=== PATIENT | female | born 1970 | race Caucasian/White ===

== ENCOUNTER → 2020-02-10 | Outpatient (CLI) | payer MEDICARE, OTHER ==
[~2020-02-10] MED LIST: FLEXERIL 10 MG10 MG PO; PREDNISONE 50 M50 MG PO; Voltaren Gel 1 % TOP
[2020-02-10 11:26] LABS: HEMOGLOBIN 14.1 gm/dl (12.3-15.3); RED BLOOD COUNT 4.74 M/UL (4.00-5.10); WHITE BLOOD COUNT 10.2 K/UL (4.5-11.0)
[2020-02-10 11:56] LABS: BUN/CREATININE RATIO 19 (0-10)
== END ==
LOC: LAB 10:49
PROVIDERS: Nurse Practitioner Psychiatric/Mental Health
DX: D50.9 Iron deficiency anemia, unspecified (principal)
CPT/HCPCS: 36415; 80053; 80061; 82607; 83036; 83540; 83735; 85025

== ENCOUNTER → 2020-02-11 | Outpatient (CLI) | payer MEDICARE, OTHER | LOC: HEART 5 08:54 | DX: R07.9 Chest pain, unspecified (principal); I08.8 Other rheumatic multiple valve diseases | CPT/HCPCS: 93306 ==

== ENCOUNTER → 2020-02-19 | Outpatient (CLI) | payer MEDICARE, OTHER | LOC: HEART 5 11:27 | DX: R07.9 Chest pain, unspecified (principal) ==

== ENCOUNTER → 2020-03-02 | Outpatient (CLI) | payer MEDICARE, OTHER | LOC: KOH-I 14:55 | DX: R41.3 Other amnesia (principal); G31.9 Degenerative disease of nervous system, unspecified | CPT/HCPCS: 70450 ==

== ENCOUNTER 2020-09-17 18:55 | Emergency (ER) | payer MEDICARE ==
[2020-09-17 21:22] LABS: HEMOGLOBIN 13.4 gm/dl (12.3-15.3); RED BLOOD COUNT 4.74 M/UL (4.00-5.10); WHITE BLOOD COUNT 9.4 K/UL (4.5-11.0)
[2020-09-17 21:42] LABS: BUN/CREATININE RATIO 13 (0-10)
[2020-09-17] MEDS ORDERED: ZOFRAN4 MG PO (23:46)
[2020-09-17] MEDS ORDERED: DELSYM30 MG/5 ML PO (23:46)
== END 2020-09-17 23:30 | disposition home or self-care (01) ==
LOC: ER1 18:55
PROVIDERS: Physician Assistant
DX: U07.1 COVID-19 (principal); E11.9 Type 2 diabetes mellitus without complications; Z90.49 Acquired absence of other specified parts of digestive tract
CPT/HCPCS: 71045; 80053; 81001; 85025; 87086; 99283

== ENCOUNTER 2020-09-21 17:41 | Emergency (ER) | payer MEDICARE ==
[~2020-09-21 17:41] MED LIST changes: +DELSYM30 MG/5 ML PO; +ZOFRAN4 MG PO
[2020-09-21] MEDS ORDERED: HYDROXYCHLOROQ200 MG PO (19:48)
[2020-09-21] MEDS ORDERED: AZITHROMYCIN250 MG PO (19:48)
[2020-09-21] MEDS ORDERED: PHENERGAN 25 MG25 M1 PO (19:48)
== END 2020-09-21 20:03 | disposition home or self-care (01) ==
LOC: ER1 17:41
DX: U07.1 COVID-19 (principal); J12.82 Pneumonia due to coronavirus disease 2019; E78.5 Hyperlipidemia, unspecified; E11.9 Type 2 diabetes mellitus without complications; Z79.4 Long term (current) use of insulin; Z90.49 Acquired absence of other specified parts of digestive tract
CPT/HCPCS: 71045; 82962; 99283

== ENCOUNTER 2021-02-12 16:16 | Emergency (ER) | payer MEDICARE ==
[~2021-02-12 16:16] MED LIST changes: +AZITHROMYCIN250 MG PO; +HYDROXYCHLOROQ200 MG PO; +PHENERGAN 25 MG25 M1 PO
[2021-02-12 17:13] LABS: HEMOGLOBIN 14.4 gm/dl (12.3-15.3); RED BLOOD COUNT 4.79 M/UL (4.00-5.10); WHITE BLOOD COUNT 8.1 K/UL (4.5-11.0)
[2021-02-12 17:32] LABS: BUN/CREATININE RATIO 20 (0-10)
[2021-02-12] MEDS ORDERED: PROAIR HFA8.5 GM INH (22:38)
[2021-02-12] MEDS ORDERED: OMNICEF 300 MG300 MG PO (22:38)
== END 2021-02-12 22:48 | disposition home or self-care (01) ==
LOC: ER1 16:16
PROVIDERS: Physician Assistant Medical
DX: N39.0 Urinary tract infection, site not specified (principal); E11.9 Type 2 diabetes mellitus without complications; Z20.822 Contact with and (suspected) exposure to COVID-19
CPT/HCPCS: 71045; 80053; 81001; 82550; 82553; 82962; 83880; 84484; 85025; 96374; 99285; Q9967; U0002

== ENCOUNTER → 2021-06-23 | Outpatient (CLI) | payer MEDICARE ==
[~2021-06-23] MED LIST changes: +BENZONATATE100 MG PO; +OMNICEF 300 MG300 MG PO; +PROAIR HFA8.5 GM INH; +PROVENTIL HFA6.7 GM INH
== END ==
LOC: HEART 5 10:23
DX: R06.00 Dyspnea, unspecified (principal)
CPT/HCPCS: 94010